=== PATIENT | female | born 1970 | race Caucasian/White ===

== ENCOUNTER 2017-09-08 08:33 | Observation (INO) | payer SELFPAY ==
[~2017-09-08] VITALS: Ht 165.1 cm; Wt 54.9 kg
[~2017-09-08 08:33] MED LIST: DIAZEPAM PO; Z.0.LEVOTHYROXINE125 PO
[2017-09-08] MEDS ORDERED: ASPIRIN 81 MG CHEW TAB PO STA (08:45)
[2017-09-08] MEDS ORDERED: ASPIRIN 81 MG CHEW TAB PO ONE ×2 (08:45→11:15)
[2017-09-08] MEDS ORDERED: SODIUM CHLORIDE 0.9% 500ML 500 ML IV STA (08:45)
[2017-09-08 09:19] LABS: BASOPHILS % 0.6 % (0.0-1.0); EOSINOPHILS # (AUTO) 0.1 (0.0-0.4); EOSINOPHILS % 1.4 % (0.0-6.0); HEMATOCRIT 41.2 % (34.2-44.1); HEMOGLOBIN 14.1 g/dL (12.0-16.0); LYMPHOCYTES # (AUTO) 2.5 (1.0-3.2); LYMPHOCYTES % 34.8 % (18.0-39.1); MEAN CORPUSCULAR HEMOGLOBIN 31.5 pg (28-32); MEAN CORPUSCULAR HGB CONC 34.2 g/dL (31-35); MEAN CORPUSCULAR VOLUME 92.2 fL (81-99); MONOCYTES # (AUTO) 0.5 (0.2-0.8); MONOCYTES % 6.7 % (4.4-11.3); NEUTROPHILS % 56.4 % (38.7-80.0); PLATELET COUNT 248 x10e3/uL (140-360); RED BLOOD COUNT 4.47 x10e6/uL (3.6-5.1); RED CELL DISTRIBUTION WIDTH 11.9 % (11.7-14.4)
[2017-09-08 09:23] LABS: INR 0.95; PROTHROMBIN TIME 11.9 seconds (11.9-14.5)
[2017-09-08 09:24] LABS: PARTIAL THROMBOPLASTIN TIME 29.8 seconds (23.8-35.5)
[2017-09-08 09:27] LABS: AMPHETAMINES SCREEN,URINE NEGATIVE (NEGATIVE); BENZODIAZEPINES SCREEN,URINE POSITIVE (NEGATIVE); PHENCYCLIDINE SCREEN,URINE NEGATIVE (NEGATIVE)
[2017-09-08 09:32] LABS: ALANINE AMINOTRANSFERASE 23 IU/L (0-55); ALBUMIN 4.4 g/dL (3.5-5.0); ALBUMIN/GLOBULIN RATIO 1.4 (0.8-2.0); ALKALINE PHOSPHATASE 74 IU/L (40-150); ANION GAP 12.2 mmol/L (8-16); BLOOD UREA NITROGEN 15 mg/dL (7-26); BUN/CREATININE RATIO 19 (6-25); CALCIUM 10.4 mg/dL (8.4-10.2); CARBON DIOXIDE 28 mmol/L (22-29); CHLORIDE 107 mmol/L (98-107); CREATINE KINASE 96 IU/L (29-168); CREATININE, SERUM 0.81 mg/dL (0.57-1.11); EST GLOMERULAR FILTRATION RATE > 60 ML/MIN (60-); GLUCOSE 100 mg/dL (74-118); LIPASE 35 U/L (8-78); POTASSIUM 4.2 mmol/L (3.5-5.1); SODIUM 143 mmol/L (136-145)
--- NOTE | 2017-09-08 10:52 | Diagnostic Imaging Report ---
PROCEDURE:CHEST SINGLE (PORTABLE) TECHNIQUE:Portable AP chest INDICATION:Left lateral chest pain COMPARISON:Patients [facility], DX, CHEST 2 VIEWS, 08/13/2013, 16:36. FINDINGS: Lungs are clear and symmetrically inflated. No pleural effusions. Normal heart size, mediastinal contour, and pulmonary vasculature. Intact skeleton. CONCLUSION: No acute abnormality. Dictated by: Papa Alford M.D. on 09/08/2017 at 10:55 Electronically approved by: Papa Alford M.D. on 09/08/2017 at 10:55
[2017-09-08 11:48] VITALS: BP 119/61
[2017-09-08 11:56] VITALS: BP 119/61
[2017-09-08] MEDS ORDERED: DIAZEPAM5 MG PO (12:12)
[2017-09-08 14:56] VITALS: BP 117/66
[2017-09-08] MEDS: MORPHINE SULFATE 2 MG/ML SYR IV PRN ×2 (16:25→21:04)
[2017-09-08] MEDS ORDERED: SODIUM CHLORIDE 0.9% 250ML 0 ML ONE (18:24)
[2017-09-08 18:26] LABS: CREATINE KINASE 76 IU/L (29-168)
[2017-09-08] MEDS ORDERED: PROMETHAZINE 12.5MG/ NACL 0.9% 50 ML IV PRN (18:30)
[2017-09-08] MEDS ORDERED: PROMETHAZINE 12.5MG/ NACL 0.9% 12.5 MG/50 ML BAG IV PRN (18:30)
[2017-09-08 20:00] VITALS: BP 109/56
[2017-09-08 20:15] VITALS: BP 117/66
[2017-09-08] MEDS ORDERED: SODIUM CHLORIDE 0.9% 250ML 250 ML ONE (20:44)
[2017-09-08 21:49] VITALS: BP_SYST 108; BP_SYST 117; BP_DIAS 56; BP_DIAS 66
[2017-09-08] MEDS ORDERED: DIAZEPAM 5 MG TAB PO PRN (22:15)
--- NOTE | 2017-09-08 22:37 | History and Physical ---
DATE OF SERVICE: September 08, 2017 TIME: 2:30 p.m. PRIMARY CARE PHYSICIAN: None. CHIEF COMPLAINT: Chest pain. HISTORY OF PRESENT ILLNESS: This is a 47-year-old woman with a history of hypothyroidism, now developing chest discomfort deep in the tissue of the left breast or underneath the left breast, radiating towards the right chest, rated as 7/10, described as a heaviness with no shortness of breath, but no nausea or dizziness. Patient later described the chest discomfort, felt like Charley horse. Patient continues to have discomfort. She never had a stress test before. No travel in the last 2 months. She is admitted for further evaluation and management. PAST MEDICAL HISTORY: Hypothyroidism, anxiety disorder. PAST SURGICAL HISTORY: Thyroid, hysterectomy, foot surgery. ALLERGIES: PER ELECTRONIC MEDICAL RECORD. FAMILY HISTORY/SOCIAL HISTORY: Patient is . She has 5 children. No alcohol, or illicits. She quit cigarettes 5 years ago. MEDICATIONS: Per electronic medical record. REVIEW OF SYSTEMS: Denies any dizziness, fevers, chills, sweats, nausea, vomiting, diarrhea. PHYSICAL EXAMINATION VITAL SIGNS: Reviewed. GENERAL: A tired-appearing woman resting in bed. HEENT: Anicteric. Pupils respond to light. No oral lesions. CARDIOVASCULAR: Normal S1, S2. Without murmurs. ABDOMEN: Soft, nontender, nondistended. No epigastric tenderness. MUSCULOSKELETAL: She has mild discomfort in the left chest wall on palpation. EXTREMITIES: No edema or calf tenderness. NEUROLOGICAL: Alert and oriented times 3. Moving all extremities. SKIN: Dry. PSYCHIATRIC: Normal affect. LABS: Reviewed. MEDICATIONS: Reviewed. ASSESSMENT AND PLAN: This is a 47-year-old woman with 1. Chest discomfort, likely musculoskeletal. We will trend cardiac enzymes, so far negative. Will obtain a lipid panel. 2. Anxiety disorder. Restart Valium. 3. Cannabinoid use. 4. Prophylaxis. Will use Lovenox and Pepcid. 5. Disposition. Monitor closely. 6. Use aspirin. 7. Follow up cardiac enzymes obtained. 8. Follow up lipid panel. Job#: [id number] CQ
[2017-09-08 23:38] LABS: CREATINE KINASE MB 1.9 ng/mL (0-5.0)
[2017-09-09] VITALS: BP 102/58
[2017-09-09 04:00] VITALS: BP 104/51
[2017-09-09 06:29] LABS: ANION GAP 9.8 mmol/L (8-16); BLOOD UREA NITROGEN 13 mg/dL (7-26); BUN/CREATININE RATIO 16 (6-25); CALCIUM 9.9 mg/dL (8.4-10.2); CARBON DIOXIDE 30 mmol/L (22-29); CHLORIDE 108 mmol/L (98-107); EST GLOMERULAR FILTRATION RATE > 60 ML/MIN (60-); GLUCOSE 83 mg/dL (74-118); MAGNESIUM 1.8 MG/DL (1.3-2.1); PHOSPHORUS 3.5 MG/DL (2.3-4.7); POTASSIUM 4.8 mmol/L (3.5-5.1); SODIUM 143 mmol/L (136-145)
[2017-09-09 06:31] LABS: CHOL/HDL RATIO 3.8 (3.0-3.6)
[2017-09-09] MEDS ORDERED: ZOFRAN ODT4 MG PO (07:05)
[2017-09-09] MEDS ORDERED: ASPIRIN EC81 MG PO (07:05)
[2017-09-09] MEDS ORDERED: FAMOTIDINE20 MG PO (07:05)
[2017-09-09] MEDS ORDERED: PRAVASTATIN SOD20 MG PO (07:07)
[2017-09-09 07:10] VITALS: BP 105/51
[2017-09-09] MEDS ORDERED: FAMOTIDINE 20 MG TAB PO SCH (07:30)
[2017-09-09 08:00] VITALS: BP 105/51
[2017-09-09] MEDS ORDERED: LEVOTHYROXINE SODIUM 125 MCG TAB PO SCH (09:00)
[2017-09-09] MEDS ORDERED: ASPIRIN 81 MG ENTERIC COATED PO SCH (09:00)
[2017-09-09] MEDS ORDERED: ENOXAPARIN SOD INJ 40 MG/0.4 ML SYR SC SCH (17:00)
--- NOTE | 2017-09-12 14:20 | Discharge Summary ---
PRINCIPAL DIAGNOSES 1. Atypical chest pain, likely musculoskeletal. 2. Musculoskeletal chest pain. 3. Anxiety disorder. 4. Cannabinoid use. SECONDARY DIAGNOSIS: Anxiety disorder. CHIEF COMPLAINT: Chest pain. HISTORY OF PRESENT ILLNESS: This is a 47-year-old woman with chest pain. Please refer to the H and P for further details. HOSPITAL COURSE: The patient was found to have chest pain, which was atypical, likely musculoskeletal in nature. Cardiac enzymes were negative. Lipid panel was obtained. She has anxiety disorder treated with Valium and cannabinoid use. The patient's chest pain resolved, and she was discharged from the hospital with medication. DISCHARGE MEDICATIONS: Per electronic medical record. FOLLOWUP: With primary care doctor in 1 week. CONDITION ON DISCHARGE: Stable and improving. DISCHARGE LOCATION: Home. PALMER WASHBURN MD Job#: [id number]
== END 2017-09-09 08:30 | disposition home or self-care (01) ==
LOC: ER 08:33 → ERHOLD 11:21 → IMCU 11:36
PROVIDERS: ADMIT Internal Medicine; ATTEND Internal Medicine
DX: R07.89 Other chest pain (principal); E03.9 Hypothyroidism, unspecified; F41.9 Anxiety disorder, unspecified; F12.10 Cannabis abuse, uncomplicated; Z87.891 Personal history of nicotine dependence
CPT/HCPCS: 36415 ×2; 71045; 80048; 80053; 80061; 80307; 82550; 82553; 83690; 83735; 84100; 84443; 84484; 85025; 85379; 85610; 85730; 93005; 93306; 99284; G0378 ×2; J2270; J2550; J7040; J7050